=== PATIENT | female | born 1990 | race American Indian/Alaskan Native ===

== ENCOUNTER 2018-03-11 15:49 | Emergency (ER) | payer OTHER ==
[2018-03-11 15:58] VITALS: BP 117/74
[2018-03-11] MEDS ORDERED: NORCO 5/325 PO ONE (16:03)
[2018-03-11] MEDS ORDERED: ZOFRAN ODT PO ONE (16:03)
--- NOTE | 2018-03-11 16:10 | Emergency Department Report ---
Upper Extremity - HPI Chief Complaint: Extremity Injury, Upper Stated Complaint: THUMB PAIN Time Seen by Provider: 03/11/18 16:00 Upper Extremity: Right Thumb Occurred When: Today Mechanism: Fall Severity: moderate Symptoms: Yes Pain with Movement, Yes Limited Range of Movement, Yes Swelling, Yes Bruising/Ecchymosis, No Deformity, No Numbness, No Weakness, No Laceration or Abrasion Other History: 27-year-old female past medical history none presents with complaint of right thumb pain status post mechanical fall out of chair. Patient states she landed awkwardly onto her right side with her thumb tucked underneath her body. Patient felt a pop in her distal right thumb. Denies injury to any other body part denies any head trauma denies any LOC. Visible swelling to right thumb DIP joint. Patient has difficulty flexing/extending the joint. No lacerations sustained. ED Review of Systems ROS: Stated complaint: THUMB PAIN Other details as noted in HPI Constitutional: denies: chills, fever Eyes: denies: eye pain, eye discharge, vision change ENT: denies: ear pain, throat pain Respiratory: denies: cough, shortness of breath, wheezing Cardiovascular: denies: chest pain, palpitations Endocrine: no symptoms reported Gastrointestinal: denies: abdominal pain, nausea, diarrhea Genitourinary: denies: urgency, dysuria, discharge Musculoskeletal: denies: back pain, joint swelling, arthralgia Skin: denies: rash, lesions Neurological: denies: headache, weakness, paresthesias Psychiatric: denies: anxiety, depression Hematological/Lymphatic: denies: easy bleeding, easy bruising ED Past Medical Hx - Past Medical History Previous Medical History?: No - Surgical History Past Surgical History?: No - Social History Smoking Status: Never Smoker Substance Use Type: None - Medications Home Medications: Home Medications Medication Instructions Recorded Confirmed Last Taken Type Acetaminophen/Codeine [Tylenol 1 tab PO Q6H PRN #10 tab 03/11/18 Unknown Rx /Codeine # 3 tab] Ibuprofen [Motrin] 600 mg PO Q8H PRN #20 tablet 03/11/18 Unknown Rx Upper Extremity Exam - Exam General: Vital signs noted. No distress. Alert and acting appropriately. Head and Torso: No HEENT Abnormality, No Neck Tenderness, No Chest/Lungs Abnormality, No Abdominal Tenderness, No Back Tenderness Shoulder Exam: Yes Normal Range of Motion in Shoulder, No Shoulder Tenderness, No Clavicle Tenderness, No Shoulder Deformity, No AC Joint Tenderness Arm Exam: No Arm/Humerus Tenderness, No Arm Deformity Elbow: No Elbow Tenderness, No Normal Range of Motion in Elbow, No Elbow Deformity Forearm: No Forearm Tenderness, No Forearm Deformity, No Pain with Pronation, No Pain with Supination Wrist: Yes Normal ROM in Wrist (wrist flexion and extension clinically intact), No Wrist Tenderness, No Wrist Deformity, No Snuffbox Tenderness (there is no snuffbox tenderness on exam), No Pain with Axial Thumb Compression Hand: Yes Digit Tenderness (pain at the distal thumb at MCP joint and DIP joint) , Yes Normal ROM in Digit(s) (limits his range of motion right thumb, painful flexion), No Hand Tenderness, No Hand Deformity, No Digit(s) Deformity, No Tendon Dysfunction CMS Exam: Yes Normal Distal Pulses (capillary refill less than one second all fingers including right thumb, distal radial and ulnar pulses strong to palpation), Yes Normal Capillary Refill, Yes Normal Distal Sensation, No Broken Skin ED Course Vital Signs 03/11/18 15:54 Temperature 98 F Pulse Rate 93 H Respiratory 16 Rate Blood Pressure 117/74 O2 Sat by Pulse 99 Oximetry ED Medical Decision Making - Medical Decision Making A/P: Right thumb injury 1-x-ray shows no fracture 2-Motrin and [place] when necessary 3-right thumb spica splint 4- follow-up with ortho Critical care attestation.: If time is entered above; I have spent that time in minutes in the direct care of this critically ill patient, excluding procedure time. ED Disposition Clinical Impression: Injury of right thumb Qualifiers: Encounter type: initial encounter Qualified Code(s): S69.91XA - Unspecified injury of right wrist, hand and finger(s), initial encounter Disposition: TO HOME OR SELFCARE Is pt being admited?: No Does the pt Need Aspirin: No Condition: Stable Instructions: Finger Sprain (ED), RICE Therapy (ED) Prescriptions: Acetaminophen/Codeine [Tylenol /Codeine # 3 tab] 1 tab PO Q6H PRN #10 tab PRN Reason: Pain Ibuprofen [Motrin] 600 mg PO Q8H PRN #20 tablet PRN Reason: Pain Referrals: DARBY WASHINGTON MD [Staff Physician] - 3-5 Days [facility] [Provider Group] - 3-5 Days Forms: Accompanied Note, Work/School Release Form(ED) Time of Disposition: 16:48
--- NOTE | 2018-03-11 17:12 | XRay Report ---
FINAL REPORT EXAM: XR FINGER(S) 2+V RT HISTORY: hand injury/ right thumb pain COMPARISON: None. TECHNIQUE: Three views of the right thumb, including a frontal view of the hand FINDINGS: There is normal alignment without acute fracture or dislocation. The joint spaces are preserved. There is soft tissue swelling around the interphalangeal joint of the thumb. IMPRESSION: No acute bony abnormality of the right thumb. Soft tissue swelling around the interphalangeal joint of the thumb.
== END 2018-03-11 17:13 | disposition home or self-care (01) ==
LOC: ED 15:49
DX: S69.91XA Unspecified injury of right wrist, hand and finger(s), initial encounter (principal); W08.XXXA Fall from other furniture, initial encounter; Y93.89 Activity, other specified; Y99.9 Unspecified external cause status; Y92.89 Other specified places as the place of occurrence of the external cause
CPT/HCPCS: Q0162